=== PATIENT | male | born 1980 | race Caucasian/White ===

== ENCOUNTER 2020-04-19 09:57 | Inpatient (IN) ==
[2020-04-19 10:02] VITALS: BMI 31.3
--- NOTE | 2020-04-19 10:44 | DR.GENAD ---
HPI Time Seen Time Seen by Provider: 04/19/20 10:05 PCP Primary Care Physician: MARYANA ELLISON HPI Comment HPI Comment: PATIENT IS 39YR OLD MALE IN ER WITH CHEST PAIN, INCREASING SOB AND NON PRODUCTIVE COUGH THAT IS GETTING WORSE. WAS PLACE ON ZITHROMAX AND DEVELOP DIARRHEA AND NAUSEA WITH MEDICATION. PATIENTS COVID 19 TEST DONE 04/13/2020 WAS POSITIVE. Complaint/Symptoms Chief Complaint Doctors Comments: INCREASING SOB, CHEST PAIN AND NON PRODUCTIVE COUGH. Chief Complaint:: [facility] BRINGS PT. IN WITH C/O CHEST PAIN AND INCREASED SHORTNESS OF BREATH. CHEST PAIN WORSENS WHEN PT. TAKES A DEEP BREATH. PT. TESTED POSITIVE FOR COVID 19 ON 04-13-20. O2 SAT ON ROOM AIR WITH EMS WAS 90%. PT. WAS PLACED ON O2 VIA N/C AND O2 SAT INCREASED TO 95%. COVID-19 Coronavirus risk:travel/contact w/high risk person: Yes Has patient experienced Coronavirus symptoms: Yes Coronavirus symptoms experienced: Fever and Shortness of Breath Source History Provided: Patient and EMS Mode of Arrival Mode of Arrival: EMS Timing Onset of Chief Complaint: 04/16/20 Came on: Suddenly Duration Duration: Constant Duration: Days Severity Severity: Moderate Modifying Factors Worsens:: EXERTION. Improves:: REST. Associated Signs and Symptoms Associated Signs and Symptoms: GENERALIZED WEAKNESS AND BODY ACHES. PMH PMH Past Medical History: Yes Past Medical History: Kidney Stones Past Surgical History: Yes Surgical History: Appendectomy, Lithotripsy and Other Past Surgical History Comment: LEFT SHOULDER Family History History of Family Medical Conditions: No Social History Does patient currently use any type of tobacco product: No Have you used tobacco products in the last 12 months: No Type of Tobacco Use: None Does any household member use tobacco: No Alcohol Use: Rarely Do you use any recreational Drugs:: No Lives With: Spouse Lives Where: Home Travel Risk Coronavirus risk:travel/contact w/high risk person: Yes Has patient experienced Coronavirus symptoms: Yes Coronavirus symptoms experienced: Fever and Shortness of Breath Infectious screening In the last 2 months have you had wt loss of >10#?: NO Have you had fever, night sweats or hemotysis?: No Have you traveled outside the country in the last 6 months?: No Isolation: Droplet ROS Review of Systems Constitutional: See HPI, Fever, Malaise, Weakness, Fatigue and Loss of Appetite Eyes: No Symptoms Reported and See HPI; negative Blurred Vision and Diplopia ENTM: See HPI, Nose Discharge and Nose Congestion; negative Ear Pain and Throat Pain Respiratoy: See HPI, Non-Productive Cough and Short of Breath; negative Wheezing Cardiovascular: See HPI and Chest Pain; negative Edema Gastrointestinal/Abdominal: See HPI, Diarrhea and Nausea; negative Vomiting Genitourinary: No Symptoms Reported and See HPI; negative Dysuria, Frequency and Hematuria Neurological: See HPI, Headache and Weakness; negative Dizziness Musculoskeletal: See HPI and Muscle Pain; negative Back Pain Integumentary: No Symptoms Reported and See HPI; negative Change in Color, Rash and Juandice Hematologic/Lymphatic: No Symptoms Reported and See HPI; negative Easy Bruising and Swollen Glands Endocrine: See HPI, Increased Thirst and Decreased Appetite; negative Increased Urine (DECREASE URINATION.) Psychiatric: No Symptoms Reported and See HPI All Other Systems: Reviewed and Negative PE Vital Signs Vitals: Temperature 98.7 F Pulse Rate [Brachial] 81 Pulse Rate 66 Respiratory Rate 19 Blood Pressure [Left Arm] 118/77 Blood Pressure 132/77 O2 Sat by Pulse Oximetry 94 General Limitations: No Limitations General Appearance: Alert and In Distress Head Head Exam: Normal Inspection and Atraumatic Eyes Eye exam: Normal Appearance and PERRL; negative Scleral Icterus and Conjunctival Injection ENT ENT Exam: Normal Exam, Normal Oropharynx, Normal External Ear Exam and TM's Normal Bilaterally External Ear Exam: Normal External Inspection; negative Mastoid Tenderness TM/Canal Exam: Bilateral: Normal Nose Exam: Normal Nose Exam Mouth Exam: Normal Inspection; negative Lip Swelling and Tongue Swelling Throat Exam: Normal Inspection; negative Tonsillar Erythema, Tonsillomegaly and Tonsillar Exudate Neck Neck Exam: Normal Inspection and Trachea Midline; negative Tenderness and Lymphadenopathy Chest Chest Inspection: Normal Inspection and Symmetric Chest Wall Rise; negative Tenderness Respiratory Respiratory Exam: Normal Lung Sounds Bilat; negative Accessory Muscle Use, Chest Wall Tenderness and Respiratory Distress Respiratory Exam: Bilateral: Rhonchi and Lower: Rhonchi Cardiovascular Cardiovascular Exam: Regular Rate, Normal Rhythm and Normal Heart Sounds; negative Systolic Murmur and Diastolic Murmur Abdominal Exam Abdominal Exam: Normal Inspection, Normal Bowel Sounds and Soft; negative Tenderness Extremities Extremities Exam: Normal Inspection and Normal Capillary Refill; negative Tenderness, Edema and Calf Tenderness Back Back Exam: Normal Inspection; negative (R) CVA Tenderness and (L) CVA Tenderness Neurologic Neurological Exam: Alert, Oriented X3 and CN II-XII Intact; negative Motor Sensory Deficit Psychiatric Psychiatric Exam: Normal Affect and Normal Mood Skin Skin Exam: Dry MDM Differential Diagnosis Differential Diagnosis: PNEUMONIA, RESPIRATORY DISTRESS, COVID 19 INFECTION, BRONCHITIS,UTI. COURSE Treatment Treatment: SEE ORDERS. ZOSYN 3.375 MG IVPB, NS 125CC/HR. Consultation Consultation Comments: DISCUSSED PATIENT WITH DR. MARI AND SHE WILL ADMIT PATIENT. Education/Counseling Education/Counseling: Family Educated On: Diagnosis ROR Labs Reviewed Laboratory Results Reviewed?: Yes Result Diagrams: 04/22/20 04:35 04/22/20 04:35 Laboratory: 04/21/20 10:40 Sputum - Expectorated Sputum Sputum Culture - Preliminary 04/21/20 10:40 Sputum - Expectorated Sputum - Final 04/19/20 10:35 Blood Blood Culture - Preliminary 04/19/20 10:25 Blood Blood Culture - Preliminary WBC 11.0 X10^3/uL (3.6-10.0) H 04/21/20 04:25 RBC 4.62 X10^6/uL (4.7-6.0) L 04/21/20 04:25 Hgb 13.8 g/dL (13.5-18.0) 04/21/20 04:25 Hct 41.6 % (42.0-54.0) L 04/21/20 04:25 MCV 90.1 fL (80.0-100.0) 04/21/20 04:25 MCH 29.9 pg (27.0-34.0) 04/21/20 04:25 MCHC 33.2 g/dL (33.0-35.0) 04/21/20 04:25 RDW 13.8 % (11.6-16.5) 04/21/20 04:25 Plt Count 220 X10^3/uL (150.0-450.0) 04/21/20 04:25 Plt Count Comment Adequate (ADEQUATE) 04/21/20 04:25 MPV 9.4 fL (7.4-11.0) 04/21/20 04:25 Neut % (Auto) 87.3 % (42.0-75.0) H 04/21/20 04:25 Lymph % (Auto) 4.5 % (21.0-51.0) L 04/21/20 04:25 [place] % (Auto) 6.5 % (0.0-13.0) 04/21/20 04:25 Eos % (Auto) 0.9 % (0.9-2.9) 04/21/20 04:25 Baso % (Auto) 0.8 % (0.2-1.0) 04/21/20 04:25 Neut # (Auto) 9.6 x10^3/uL (2.2-4.8) H 04/21/20 04:25 Lymph # (Auto) 0.5 X10^3/uL (1.3-2.9) L 04/21/20 04:25 [place] # (Auto) 0.7 x10^3/uL (0.3-0.8) 04/21/20 04:25 Eos # (Auto) 0.1 x10^3/uL (0.0-0.2) 04/21/20 04:25 Baso # (Auto) 0.1 X10^3/uL (0.0-0.1) 04/21/20 04:25 Absolute Nucleated RBC 0.0 /100WBC 04/21/20 04:25 Total Counted 100 04/21/20 04:25 Neutrophils % (Manual) 87 % (39-76) H 04/21/20 04:25 Band Neutrophils % 4 % (0-10) 04/19/20 10:35 Lymphocytes % (Manual) 10 % (13-43) L 04/21/20 04:25 Monocytes % (Manual) 3 % (4-9) L 04/21/20 04:25 Plt Morphology Comment Normal (NORMAL) 04/21/20 04:25 RBC Morphology Normal (NORMAL) 04/21/20 04:25 Sample Site Rr 04/19/20 12:58 ABG pH 7.430 (7.35-7.45) 04/19/20 12:58 ABG pCO2 35.0 mmHg (35.0-45.0) 04/19/20 12:58 ABG pO2 70.0 mmHg (80.0-100.0) L 04/19/20 12:58 ABG HCO3 23.2 mmol/L (22-26) 04/19/20 12:58 ABG O2 Saturation 94.0 % (90-100) 04/19/20 12:58 ABG Base Excess -0.7 mmol/L (-2.0-2.0) 04/19/20 12:58 Ugo Test Pos 04/19/20 12:58 A-a Gradient 86.0 mmHg 04/19/20 12:58 FiO2 28.0 04/19/20 12:58 Blood Gas Comments Rima well cb 04/19/20 12:58 Sodium 139 mmol/L (136-145) 04/21/20 04:25 Corrected Sodium 141 mmol/L (136-145) 04/21/20 04:25 Potassium 4.1 mmol/L (3.5-5.1) 04/21/20 04:25 Chloride 105 mmol/L (98-107) 04/21/20 04:25 Carbon Dioxide 23.8 mmol/L (21-32) 04/21/20 04:25 BUN 14 mg/dL (7-18) 04/21/20 04:25 Creatinine 1.03 mg/dL (0.70-1.30) 04/21/20 04:25 Est GFR (MDRD) Af Amer > 60 (>60) 04/21/20 04:25 Est GFR (MDRD) Non-Af > 60 (>60) 04/21/20 04:25 Glucose 180 mg/dL (65-99) H 04/21/20 04:25 Lactic Acid 1.5 mmol/L (0.4-2.0) 04/19/20 10:35 Calcium 8.3 mg/dL (8.5-10.1) L 04/21/20 04:25 Corrected Calcium 9.7 mg/dL (8.5-10.1) 04/20/20 05:30 Ferritin 667 ng/mL (26-388) H 04/19/20 10:35 Total Bilirubin 0.30 mg/dL (0.2-1.0) 04/20/20 05:30 AST 18 Units/L (15-37) 04/20/20 05:30 ALT 33 Units/L (12-78) 04/20/20 05:30 Alkaline Phosphatase 58 Units/L (46-116) 04/20/20 05:30 Creatine Kinase 55 Units/L (39-308) 04/19/20 10:35 CK-MB (CK-2) < 1.0 ng/mL (0-4.0) 04/19/20 10:35 CK/CKMB % Calc 1.8 % (<4) 04/19/20 10:35 Troponin I < 0.02 ng/mL (0-1.5) 04/19/20 10:35 C-Reactive Protein 33.60 mg/L (0-3.0) H 04/21/20 04:25 Total Protein 7.4 g/dL (6.4-8.2) 04/20/20 05:30 Albumin 2.7 g/dL (3.4-5.0) L 04/20/20 05:30 Globulin 4.7 g/dL (2.5-4.5) H 04/20/20 05:30 Albumin/Globulin Ratio 0.6 Ratio (1.1-2.1) L 04/20/20 05:30 XRAY XRAY Interpreted by: Radiologist (REPORT NOTED AND DISCUSSED WITH PATIENT.) and Self EKG Rate: 97 [place]: Normal Rhythm: NSR Block: None Hypertrophy: None ST: Old, Inf, Infarct and Nonsp Opioid Opioid Risk Tool Age (Sergey box if 16-45): Yes History of Preadolescent Sexual Abuse: No Total: 1 Total Score Risk Category: Low Risk Copyright: Shubham IZAGUIRRE predicting aberrant behaviors Diagnosis Discharge Problem: Shortness of breath, COVID-19 virus infection Pneumonia Qualifiers: Pneumonia type: due to unspecified organism Laterality: bilateral Lung location: unspecified part of lung Qualified Code(s): J18.9 - Pneumonia, unspecified organism Instructions Forms: Precautions for COVID19 Patient Portal Social Distancing
[2020-04-19 10:46] LABS: BASOPHILS % (AUTO) 0.2 % (0.2-1.0); HEMATOCRIT 45.7 % (42.0-54.0); HEMOGLOBIN 15.4 g/dL (13.5-18.0); LYMPHOCYTES # (AUTO) 0.3 X10^3/uL (1.3-2.9); LYMPHOCYTES % (AUTO) 2.5 % (21.0-51.0); MEAN CORPUSCULAR HEMOGLOBIN 30.1 pg (27.0-34.0); MEAN CORPUSCULAR HGB CONC 33.6 g/dL (33.0-35.0); MEAN CORPUSCULAR VOLUME 89.4 fL (80.0-100.0); MEAN PLATELET VOLUME 9.2 fL (7.4-11.0); MONOCYTES # (AUTO) 0.4 x10^3/uL (0.3-0.8); MONOCYTES % (AUTO) 3.4 % (0.0-13.0); NEUTROPHILS # (AUTO) 10.3 x10^3/uL (2.2-4.8); NEUTROPHILS % (AUTO) 93.9 % (42.0-75.0); PLATELET COUNT 179 X10^3/uL (150.0-450.0); RED BLOOD COUNT 5.12 X10^6/uL (4.7-6.0); RED CELL DISTRIBUTION WIDTH 13.8 % (11.6-16.5); WHITE BLOOD COUNT 10.9 X10^3/uL (3.6-10.0)
[2020-04-19] MEDS ORDERED: NS 1000 ML 1,000 ML IV ONE (10:52)
[2020-04-19] MEDS ORDERED: NS 1000 ML 1,000 ML ONE (10:55)
[2020-04-19 11:00] LABS: BLOOD UREA NITROGEN 18 mg/dL (7-18); CALCIUM 9.1 mg/dL (8.5-10.1); CARBON DIOXIDE 23.4 mmol/L (21-32); CHLORIDE 103 mmol/L (98-107); COR NA(FOR HYPERGLY) 139 mmol/L (136-145); LACTIC ACID 1.5 mmol/L (0.4-2.0); SODIUM 137 mmol/L (136-145); TROPONIN I < 0.02 ng/mL (0-1.5); eGFR NON BLACK RACES > 60 (>60)
[2020-04-19 11:04] LABS: ALANINE AMINOTRANSFERASE 42 Units/L (12-78); ALKALINE PHOSPHATASE 66 Units/L (46-116); ASPARTATE AMINO TRANSFERASE 25 Units/L (15-37); CKMB % 1.8 % (<4); COR CA(FOR HYPOALB) 9.9 mg/dL (8.5-10.1); CREATINE KINASE 55 Units/L (39-308); CREATINE KINASE MB < 1.0 ng/mL (0-4.0); TOTAL PROTEIN 7.9 g/dL (6.4-8.2)
[2020-04-19 11:12] LABS: BAND NEUTROPHILS % 4 % (0-10); PLATELET MORPHOLOGY COMMENT NORMAL (NORMAL)
[2020-04-19 13:03] LABS: ABG ALLEN TEST POS; ABG BASE EXCESS -0.7 mmol/L (-2.0-2.0); ABG HCO3 23.2 mmol/L (22-26)
--- NOTE | 2020-04-19 15:22 | RAD ---
HISTORYSOB, CHEST PAIN, FEVER, +COVIDSTUDYCHEST, 1 VIEWCOMPARISONNone availableFINDINGSThe trachea is midline. Heart size is normal. There is rounded area of consolidation within the periphery of the right upper lobe with mild right upper lobe volume loss. Additionally there is rounded consolidation within the right lower lobe and periphery of the left lower lobe most consistent multifocal infiltrates. Increased prominence of the right nura suspicious for either pulmonary arterial enlargement or adenopathy. Attention ion follow-up imaging in 6-8 weeks is recommended.No pleural effusion or pneumothorax. No acute osseous abnormalityIMPRESSIONSee abov.eElectronically signed by: RY BURTON (Apr 19, 2020 15:21:30)
[2020-04-19] MEDS ORDERED: TORADOL 30 MG VIAL IVP ONE (15:33)
[2020-04-19] MEDS ORDERED: ZOSYN VIAL 3.375 GRAMS 3.375 G in NS 100 ML IV + SPIKE MINIBAG* 100 ML IV ONE (15:34)
[2020-04-19] MEDS ORDERED: ZOSYN VIAL 3.375 GRAMS IV ONE ×2 (15:56→19:38)
[2020-04-19] MEDS ORDERED: NS 100 ML IV + SPIKE MINIBAG* 100 ML IV ONE ×2 (15:56→19:38)
[2020-04-19] MEDS ORDERED: TORADOL 30 MG VIAL ONE (15:56)
[2020-04-19] MEDS: ZOSYN VIAL 3.375 GRAMS 3.375 G in NS 100 ML IV + SPIKE MINIBAG* 100 ML IV SCH ×2 (16:09→21:38)
[2020-04-19] MEDS ORDERED: TUSSIONEX PENNKINETIC SUSP PO PRN (16:55)
[2020-04-19] MEDS ORDERED: DECADRON INJ IV SCH (17:00)
[2020-04-19] MEDS ORDERED: ROBITUSSIN DM ONE ×2 (17:02→19:37)
[2020-04-19] MEDS: ROBITUSSIN DM PO SCH ×2 (17:03→21:38)
[2020-04-19] MEDS ORDERED: ZOFRAN INJ 4 MG VIAL ONE (17:20)
[2020-04-19] MEDS ORDERED: NS 1/2 1000 ML IV 1,000 ML IV ONE (17:25)
[2020-04-19] MEDS: NS 1/2 1000 ML IV 1,000 ML IV SCH (17:31)
[2020-04-19] MEDS ORDERED: LEVAQUIN PREMIX IV 750 MG 750 MG/150 ML BAG IV ONE (19:38)
[2020-04-19] MEDS: PULMICORT NEB TX 0.5 MG NEB SCH (21:11)
[2020-04-19] MEDS: DUONEB 0.5 MG/3 MG (3 mL) NEB SCH (21:11)
[2020-04-19] MEDS: LEVAQUIN PREMIX IV 750 MG 750 MG/150 ML BAG IV SCH (21:37)
[2020-04-19] MEDS ORDERED: TYLENOL 325 MG TAB PO ONE (21:57)
[2020-04-19] MEDS: TYLENOL 325 MG TAB PO PRN (22:09)
[2020-04-20] MEDS: DUONEB 0.5 MG/3 MG (3 mL) NEB SCH ×3 (05:40→20:47)
[2020-04-20] MEDS: ZOSYN VIAL 3.375 GRAMS 3.375 G in NS 100 ML IV + SPIKE MINIBAG* 100 ML IV SCH ×3 (05:45→21:48)
[2020-04-20] MEDS: TYLENOL 325 MG TAB PO PRN ×2 (05:45→21:48)
[2020-04-20 06:09] LABS: BASOPHILS % (AUTO) 0.1 % (0.2-1.0); HEMATOCRIT 43.7 % (42.0-54.0); HEMOGLOBIN 14.6 g/dL (13.5-18.0); LYMPHOCYTES # (AUTO) 0.7 X10^3/uL (1.3-2.9); LYMPHOCYTES % (AUTO) 6.1 % (21.0-51.0); MEAN CORPUSCULAR HEMOGLOBIN 30.3 pg (27.0-34.0); MEAN CORPUSCULAR HGB CONC 33.4 g/dL (33.0-35.0); MEAN CORPUSCULAR VOLUME 90.7 fL (80.0-100.0); MEAN PLATELET VOLUME 9.8 fL (7.4-11.0); MONOCYTES # (AUTO) 0.6 x10^3/uL (0.3-0.8); MONOCYTES % (AUTO) 5.5 % (0.0-13.0); NEUTROPHILS # (AUTO) 9.9 x10^3/uL (2.2-4.8); NEUTROPHILS % (AUTO) 88.3 % (42.0-75.0); PLATELET COUNT 201 X10^3/uL (150.0-450.0); RED BLOOD COUNT 4.82 X10^6/uL (4.7-6.0); RED CELL DISTRIBUTION WIDTH 13.8 % (11.6-16.5); WHITE BLOOD COUNT 11.2 X10^3/uL (3.6-10.0)
[2020-04-20 06:37] LABS: ALANINE AMINOTRANSFERASE 33 Units/L (12-78); ALBUMIN 2.7 g/dL (3.4-5.0); ALKALINE PHOSPHATASE 58 Units/L (46-116); ASPARTATE AMINO TRANSFERASE 18 Units/L (15-37); BLOOD UREA NITROGEN 18 mg/dL (7-18); CALCIUM 8.7 mg/dL (8.5-10.1); CARBON DIOXIDE 24.2 mmol/L (21-32); CHLORIDE 106 mmol/L (98-107); COR CA(FOR HYPOALB) 9.7 mg/dL (8.5-10.1); COR NA(FOR HYPERGLY) 141 mmol/L (136-145); CREATININE 1.08 mg/dL (0.70-1.30); SODIUM 140 mmol/L (136-145); TOTAL PROTEIN 7.4 g/dL (6.4-8.2); eGFR NON BLACK RACES > 60 (>60)
[2020-04-20] MEDS ORDERED: REMDESIVIR (INVESTIGATIONAL DRUG GS-5734) 200 MG in NS 250 ML IV 250 ML IV NR (08:01)
[2020-04-20] MEDS ORDERED: ZOSYN VIAL 3.375 GRAMS IV ONE (08:06)
[2020-04-20] MEDS ORDERED: VITAMIN C ONE (08:13)
[2020-04-20] MEDS ORDERED: REMDESIVIR (INVESTIGATIONAL DRUG GS-5734) IV ONE (08:13)
[2020-04-20] MEDS ORDERED: NS 250 ML IV 250 ML IV ONE (08:13)
[2020-04-20] MEDS ORDERED: SOLU-Medrol 125 MG VIAL ONE (08:13)
[2020-04-20] MEDS ORDERED: NS 100 ML IV + SPIKE MINIBAG* 100 ML IV ONE (08:14)
[2020-04-20] MEDS ORDERED: LOVENOX INJ 30 MG SYR SC SCH ×2 (09:00)
[2020-04-20] MEDS: PULMICORT NEB TX 0.5 MG NEB SCH ×2 (09:00→20:47)
[2020-04-20] MEDS: LEVAQUIN PREMIX IV 750 MG 750 MG/150 ML BAG IV SCH (10:20)
[2020-04-20] MEDS: ROBITUSSIN DM PO SCH ×4 (10:21→21:48)
[2020-04-20] MEDS: VSL#3 PO SCH (10:21)
[2020-04-20] MEDS: VITAMIN C PO SCH (10:22)
[2020-04-20] MEDS: SOLU-Medrol 125 MG VIAL IVP SCH ×2 (10:22→21:48)
[2020-04-20] MEDS: NS 1/2 1000 ML IV 1,000 ML IV SCH ×2 (10:25→21:48)
[2020-04-20] MEDS: LOVENOX INJ 40 MG SYR SC SCH (10:30)
--- NOTE | 2020-04-20 15:56 | DR.H&P ---
H&P History & Physical for Day of: H&P Date: 04/20/20 Chief Complaint Chief Complaint: worsening SOB, cough Allergies Allergies Allergy/AdvReac Type Severity Reaction Status Date / Time No Known Drug Allergies Allergy Verified 04/19/20 09:58 History of Present Illness History of Present Illness: Mr. Gold is a 39y/o male with no pertinent past medical hx presented with worsening SOB, dyspnea on exertion, fatigue and cough. His symptoms started on 04/06/2020 and he was tested positive on 04/13/2020. He was given z-pack, Vit C and Zinc. His symptoms have been worsening for the past week. He reports increased SOB with exertion yesterday. Denies GI symptoms. He reports fatigue. He reports decreased appetite and weight loss. ED work-up - Labs: WBC: 10.9 CRP: 121 AB.43/35/70/23 on 2L NC CXR: multifocal right and left sided infiltrates Patient was started on Levaquin and Zosyn, IVF and Decadron Plan: continue gentle hydration, IV abx, will switch to solumedrol, add Remdesivir. Wean O2 as tolerated, currently on 3L. Continue duonebs, albuterol, PT/OT as tolerated. Monitor AM labs. Past Medical History Past Medical History: Kidney Stones Past Surgical History Surgical History: Appendectomy, Ortho Surgery and Lithotripsy Social History Does patient currently use any type of tobacco product: No Have you used tobacco products in the last 12 months: No Type of Tobacco Use: None Does any household member use tobacco: No Alcohol Use: None Medications Home Medications: No Known Drug Allergies Allergy (Verified 04/19/20 09:58) CONTINUE taking the following medications dexamethasone 6 mg PO DAILY 04/19/20 [History] famotidine 40 mg PO HS 04/19/20 [History] montelukast 10 mg PO HS 04/19/20 [History] ondansetron 8 mg PO TID PRN 04/19/20 [History] zinc gluconate 50 mg PO DAILY 04/19/20 [History] Labs Result Diagrams: 04/20/20 05:30 04/20/20 05:30 Labs: Laboratory WBC 11.2 X10^3/uL (3.6-10.0) H 04/20/20 05:30 RBC 4.82 X10^6/uL (4.7-6.0) 04/20/20 05:30 Hgb 14.6 g/dL (13.5-18.0) 04/20/20 05:30 Hct 43.7 % (42.0-54.0) 04/20/20 05:30 MCV 90.7 fL (80.0-100.0) 04/20/20 05:30 MCH 30.3 pg (27.0-34.0) 04/20/20 05:30 MCHC 33.4 g/dL (33.0-35.0) 04/20/20 05:30 RDW 13.8 % (11.6-16.5) 04/20/20 05:30 Plt Count 201 X10^3/uL (150.0-450.0) 04/20/20 05:30 Plt Count Comment Adequate (ADEQUATE) 04/19/20 10:35 MPV 9.8 fL (7.4-11.0) 04/20/20 05:30 Neut % (Auto) 88.3 % (42.0-75.0) H 04/20/20 05:30 Lymph % (Auto) 6.1 % (21.0-51.0) L 04/20/20 05:30 [place] % (Auto) 5.5 % (0.0-13.0) 04/20/20 05:30 Eos % (Auto) 0.0 % (0.9-2.9) L 04/20/20 05:30 Baso % (Auto) 0.1 % (0.2-1.0) L 04/20/20 05:30 Neut # (Auto) 9.9 x10^3/uL (2.2-4.8) H 04/20/20 05:30 Lymph # (Auto) 0.7 X10^3/uL (1.3-2.9) L 04/20/20 05:30 [place] # (Auto) 0.6 x10^3/uL (0.3-0.8) 04/20/20 05:30 Eos # (Auto) 0.0 x10^3/uL (0.0-0.2) 04/20/20 05:30 Baso # (Auto) 0.0 X10^3/uL (0.0-0.1) 04/20/20 05:30 Absolute Nucleated RBC 0.0 /100WBC 04/20/20 05:30 Total Counted 100 04/19/20 10:35 Neutrophils % (Manual) 90 % (39-76) H 04/19/20 10:35 Band Neutrophils % 4 % (0-10) 04/19/20 10:35 Lymphocytes % (Manual) 3 % (13-43) L 04/19/20 10:35 Monocytes % (Manual) 3 % (4-9) L 04/19/20 10:35 Plt Morphology Comment Normal (NORMAL) 04/19/20 10:35 RBC Morphology Normal (NORMAL) 04/19/20 10:35 Sample Site Rr 04/19/20 12:58 ABG pH 7.430 (7.35-7.45) 04/19/20 12:58 ABG pCO2 35.0 mmHg (35.0-45.0) 04/19/20 12:58 ABG pO2 70.0 mmHg (80.0-100.0) L 04/19/20 12:58 ABG HCO3 23.2 mmol/L (22-26) 04/19/20 12:58 ABG O2 Saturation 94.0 % (90-100) 04/19/20 12:58 ABG Base Excess -0.7 mmol/L (-2.0-2.0) 04/19/20 12:58 Ugo Test Pos 04/19/20 12:58 A-a Gradient 86.0 mmHg 04/19/20 12:58 FiO2 28.0 04/19/20 12:58 Blood Gas Comments Rima well cb 04/19/20 12:58 Sodium 140 mmol/L (136-145) 04/20/20 05:30 Corrected Sodium 141 mmol/L (136-145) 04/20/20 05:30 Potassium 4.0 mmol/L (3.5-5.1) 04/20/20 05:30 Chloride 106 mmol/L (98-107) 04/20/20 05:30 Carbon Dioxide 24.2 mmol/L (21-32) 04/20/20 05:30 BUN 18 mg/dL (7-18) 04/20/20 05:30 Creatinine 1.08 mg/dL (0.70-1.30) 04/20/20 05:30 Est GFR (MDRD) Af Amer > 60 (>60) 04/20/20 05:30 Est GFR (MDRD) Non-Af > 60 (>60) 04/20/20 05:30 Glucose 144 mg/dL (65-99) H 04/20/20 05:30 Lactic Acid 1.5 mmol/L (0.4-2.0) 04/19/20 10:35 Calcium 8.7 mg/dL (8.5-10.1) 04/20/20 05:30 Corrected Calcium 9.7 mg/dL (8.5-10.1) 04/20/20 05:30 Ferritin 667 ng/mL (26-388) H 04/19/20 10:35 Total Bilirubin 0.30 mg/dL (0.2-1.0) 04/20/20 05:30 AST 18 Units/L (15-37) 04/20/20 05:30 ALT 33 Units/L (12-78) 04/20/20 05:30 Alkaline Phosphatase 58 Units/L (46-116) 04/20/20 05:30 Creatine Kinase 55 Units/L (39-308) 04/19/20 10:35 CK-MB (CK-2) < 1.0 ng/mL (0-4.0) 04/19/20 10:35 CK/CKMB % Calc 1.8 % (<4) 04/19/20 10:35 Troponin I < 0.02 ng/mL (0-1.5) 04/19/20 10:35 C-Reactive Protein 121.00 mg/L (0-3.0) H 04/19/20 10:35 Total Protein 7.4 g/dL (6.4-8.2) 04/20/20 05:30 Albumin 2.7 g/dL (3.4-5.0) L 04/20/20 05:30 Globulin 4.7 g/dL (2.5-4.5) H 04/20/20 05:30 Albumin/Globulin Ratio 0.6 Ratio (1.1-2.1) L 04/20/20 05:30 Review of Systems Constitutional: Weakness and Malaise ENT: No Symptoms Reported Respiratory: Cough, Shortness of Breath and SOB with Excertion Cardiovascular: No Symptoms Reported Gastrointestinal: No Symptoms Reported Genitourinary: No Symptoms Reported Musculoskeletal: No Symptoms Reported Skin: No Symptoms Reported Neurological: No Symptoms Reported Physical Exam Vital Signs: Temperature 98.5 F Pulse Rate [Brachial] 85 Pulse Rate 88 Respiratory Rate 22 Blood Pressure [Left Arm] 120/72 Blood Pressure 132/77 O2 Sat by Pulse Oximetry 95 Oriented: Normal Eyes: Normal Ear: Normal Throat: Normal Respiratory: Diminished Throughout Cardiovascular: Normal Auscultation: Bowel Sounds: Normal Palpation: Normal Tenderness: Normal Skin: Normal Musculoskeletal: Normal Psychiatric: Normal Mood Description: Calm Affect: Normal Speech Pattern: Clear and Appropriate Assessment/Plan (1) COVID-19 virus infection: Status: Acute (2) Pneumonia: Qualifiers: Laterality: bilateral Lung location: unspecified part of lung Pneumonia type: due to unspecified organism Qualified Code(s): J18.9 - Pneumonia, unspecified organism Status: Acute (3) Acute respiratory failure with hypoxia: Status: Acute Review H&P Reviewed: Yes Patient was examined?: Yes
[2020-04-20] MEDS ORDERED: NS 1/2 1000 ML IV 1,000 ML IV ONE (20:03)
[2020-04-21 05:14] LABS: BASOPHILS # (AUTO) 0.1 X10^3/uL (0.0-0.1); BASOPHILS % (AUTO) 0.8 % (0.2-1.0); EOSINOPHILS # (AUTO) 0.1 x10^3/uL (0.0-0.2); EOSINOPHILS % (AUTO) 0.9 % (0.9-2.9); HEMATOCRIT 41.6 % (42.0-54.0); HEMOGLOBIN 13.8 g/dL (13.5-18.0); LYMPHOCYTES # (AUTO) 0.5 X10^3/uL (1.3-2.9); LYMPHOCYTES % (AUTO) 4.5 % (21.0-51.0); MEAN CORPUSCULAR HEMOGLOBIN 29.9 pg (27.0-34.0); MEAN CORPUSCULAR HGB CONC 33.2 g/dL (33.0-35.0); MEAN CORPUSCULAR VOLUME 90.1 fL (80.0-100.0); MEAN PLATELET VOLUME 9.4 fL (7.4-11.0); MONOCYTES # (AUTO) 0.7 x10^3/uL (0.3-0.8); MONOCYTES % (AUTO) 6.5 % (0.0-13.0); NEUTROPHILS # (AUTO) 9.6 x10^3/uL (2.2-4.8); NEUTROPHILS % (AUTO) 87.3 % (42.0-75.0); PLATELET COUNT 220 X10^3/uL (150.0-450.0); RED BLOOD COUNT 4.62 X10^6/uL (4.7-6.0); RED CELL DISTRIBUTION WIDTH 13.8 % (11.6-16.5)
[2020-04-21 05:35] LABS: BLOOD UREA NITROGEN 14 mg/dL (7-18); CALCIUM 8.3 mg/dL (8.5-10.1); CARBON DIOXIDE 23.8 mmol/L (21-32); CHLORIDE 105 mmol/L (98-107); COR NA(FOR HYPERGLY) 141 mmol/L (136-145); CREATININE 1.03 mg/dL (0.70-1.30); SODIUM 139 mmol/L (136-145); eGFR NON BLACK RACES > 60 (>60)
[2020-04-21] MEDS: ZOSYN VIAL 3.375 GRAMS 3.375 G in NS 100 ML IV + SPIKE MINIBAG* 100 ML IV SCH ×3 (05:41→20:59)
[2020-04-21 05:53] LABS: PLATELET MORPHOLOGY COMMENT NORMAL (NORMAL)
[2020-04-21] MEDS: DUONEB 0.5 MG/3 MG (3 mL) NEB SCH (06:35)
[2020-04-21] MEDS: REMDESIVIR (INVESTIGATIONAL DRUG GS-5734) 100 MG in NS 250 ML IV 250 ML IV SCH (09:06)
[2020-04-21] MEDS: LOVENOX INJ 40 MG SYR SC SCH (09:06)
[2020-04-21] MEDS: LEVAQUIN PREMIX IV 750 MG 750 MG/150 ML BAG IV SCH (09:06)
[2020-04-21] MEDS: VSL#3 PO SCH (09:07)
[2020-04-21] MEDS: ROBITUSSIN DM PO SCH ×4 (09:07→20:31)
[2020-04-21] MEDS: VITAMIN C PO SCH (09:08)
[2020-04-21] MEDS: SOLU-Medrol 125 MG VIAL IVP SCH ×2 (09:08→20:31)
[2020-04-21] MEDS: PULMICORT NEB TX 0.5 MG NEB SCH ×2 (09:09→20:25)
--- NOTE | 2020-04-21 13:29 | PCM.PROG ---
Progress Note Progress Note for Day of Date of Exam: 04/21/20 Subjective Subjective: Patient seen at bedside, no acute events overnight. He states his SOB got worse last night after he had a breathing treatment. He felt like he couldn't take a deep breath. He has been coughing up sputum. Denies fever or chills, no GI symptoms. He states he feels chest tightness when he takes a deep breath. He is currently on 3L NC. Labs: WBC: 11 Hgb: 13.8 CRP down to 33 Plan: get sputum Cx, continue Remdesivir, solumedrol, Levaquin and Zosyn. Will check D-dimer to rule out PE, if positive then will get CT-chest. Continue pulmicort, switch to Xopenex prn. Wean O2 as tolerated. Past Medical Family Social History Past Med/Fam/Surg Hx: No changes since H&P Allergies: Allergies No Known Drug Allergies Allergy (Verified 04/19/20 09:58) Review of Systems ROS: No change since H&P Vital Signs and I&O's Vital Signs: Temperature 97.6 F Pulse Rate [Brachial] 86 Pulse Rate 66 Respiratory Rate 20 Blood Pressure [Left Arm] 117/74 Blood Pressure 132/77 O2 Sat by Pulse Oximetry 91 Intake and Output: Intake & Output 04/18/20 04/19/20 04/20/20 04/21/20 23:59 23:59 23:59 23:59 Intake Total 1500 / 1500 3523 / 3523 795 / 795 Balance 1500 / 1500 3523 / 3523 795 / 795 Physical Exam Oriented: Normal Eyes: Normal Ear: Normal Nose: Normal Throat: Normal Respiratory: Generalized and Diminished Cardiovascular: Normal Auscultation: Bowel Sounds: Normal Tenderness: Normal Skin: Normal Musculoskeletal: Normal Psychiatric: Normal Mood Description: Calm Affect: Normal Speech Pattern: Clear and Appropriate Laboratory and Diagnostics Result Diagrams: 04/21/20 04:25 04/21/20 04:25 Labs: 04/21/20 10:40 Sputum - Expectorated Sputum - Final 04/19/20 10:35 Blood Blood Culture - Preliminary 04/19/20 10:25 Blood Blood Culture - Preliminary Laboratory WBC 11.0 X10^3/uL (3.6-10.0) H 04/21/20 04:25 RBC 4.62 X10^6/uL (4.7-6.0) L 04/21/20 04:25 Hgb 13.8 g/dL (13.5-18.0) 04/21/20 04:25 Hct 41.6 % (42.0-54.0) L 04/21/20 04:25 MCV 90.1 fL (80.0-100.0) 04/21/20 04:25 MCH 29.9 pg (27.0-34.0) 04/21/20 04:25 MCHC 33.2 g/dL (33.0-35.0) 04/21/20 04:25 RDW 13.8 % (11.6-16.5) 04/21/20 04:25 Plt Count 220 X10^3/uL (150.0-450.0) 04/21/20 04:25 Plt Count Comment Adequate (ADEQUATE) 04/21/20 04:25 MPV 9.4 fL (7.4-11.0) 04/21/20 04:25 Neut % (Auto) 87.3 % (42.0-75.0) H 04/21/20 04:25 Lymph % (Auto) 4.5 % (21.0-51.0) L 04/21/20 04:25 [place] % (Auto) 6.5 % (0.0-13.0) 04/21/20 04:25 Eos % (Auto) 0.9 % (0.9-2.9) 04/21/20 04:25 Baso % (Auto) 0.8 % (0.2-1.0) 04/21/20 04:25 Neut # (Auto) 9.6 x10^3/uL (2.2-4.8) H 04/21/20 04:25 Lymph # (Auto) 0.5 X10^3/uL (1.3-2.9) L 04/21/20 04:25 [place] # (Auto) 0.7 x10^3/uL (0.3-0.8) 04/21/20 04:25 Eos # (Auto) 0.1 x10^3/uL (0.0-0.2) 04/21/20 04:25 Baso # (Auto) 0.1 X10^3/uL (0.0-0.1) 04/21/20 04:25 Absolute Nucleated RBC 0.0 /100WBC 04/21/20 04:25 Total Counted 100 04/21/20 04:25 Neutrophils % (Manual) 87 % (39-76) H 04/21/20 04:25 Band Neutrophils % 4 % (0-10) 04/19/20 10:35 Lymphocytes % (Manual) 10 % (13-43) L 04/21/20 04:25 Monocytes % (Manual) 3 % (4-9) L 04/21/20 04:25 Plt Morphology Comment Normal (NORMAL) 04/21/20 04:25 RBC Morphology Normal (NORMAL) 04/21/20 04:25 Sample Site Rr 04/19/20 12:58 ABG pH 7.430 (7.35-7.45) 04/19/20 12:58 ABG pCO2 35.0 mmHg (35.0-45.0) 04/19/20 12:58 ABG pO2 70.0 mmHg (80.0-100.0) L 04/19/20 12:58 ABG HCO3 23.2 mmol/L (22-26) 04/19/20 12:58 ABG O2 Saturation 94.0 % (90-100) 04/19/20 12:58 ABG Base Excess -0.7 mmol/L (-2.0-2.0) 04/19/20 12:58 Ugo Test Pos 04/19/20 12:58 A-a Gradient 86.0 mmHg 04/19/20 12:58 FiO2 28.0 04/19/20 12:58 Blood Gas Comments Rima well cb 04/19/20 12:58 Sodium 139 mmol/L (136-145) 04/21/20 04:25 Corrected Sodium 141 mmol/L (136-145) 04/21/20 04:25 Potassium 4.1 mmol/L (3.5-5.1) 04/21/20 04:25 Chloride 105 mmol/L (98-107) 04/21/20 04:25 Carbon Dioxide 23.8 mmol/L (21-32) 04/21/20 04:25 BUN 14 mg/dL (7-18) 04/21/20 04:25 Creatinine 1.03 mg/dL (0.70-1.30) 04/21/20 04:25 Est GFR (MDRD) Af Amer > 60 (>60) 04/21/20 04:25 Est GFR (MDRD) Non-Af > 60 (>60) 04/21/20 04:25 Glucose 180 mg/dL (65-99) H 04/21/20 04:25 Lactic Acid 1.5 mmol/L (0.4-2.0) 04/19/20 10:35 Calcium 8.3 mg/dL (8.5-10.1) L 04/21/20 04:25 Corrected Calcium 9.7 mg/dL (8.5-10.1) 04/20/20 05:30 Ferritin 667 ng/mL (26-388) H 04/19/20 10:35 Total Bilirubin 0.30 mg/dL (0.2-1.0) 04/20/20 05:30 AST 18 Units/L (15-37) 04/20/20 05:30 ALT 33 Units/L (12-78) 04/20/20 05:30 Alkaline Phosphatase 58 Units/L (46-116) 04/20/20 05:30 Creatine Kinase 55 Units/L (39-308) 04/19/20 10:35 CK-MB (CK-2) < 1.0 ng/mL (0-4.0) 04/19/20 10:35 CK/CKMB % Calc 1.8 % (<4) 04/19/20 10:35 Troponin I < 0.02 ng/mL (0-1.5) 04/19/20 10:35 C-Reactive Protein 33.60 mg/L (0-3.0) H 04/21/20 04:25 Total Protein 7.4 g/dL (6.4-8.2) 04/20/20 05:30 Albumin 2.7 g/dL (3.4-5.0) L 04/20/20 05:30 Globulin 4.7 g/dL (2.5-4.5) H 04/20/20 05:30 Albumin/Globulin Ratio 0.6 Ratio (1.1-2.1) L 04/20/20 05:30 Plan (1) COVID-19 virus infection: Status: Acute (2) Pneumonia: Status: Acute Qualifiers: Laterality: bilateral Lung location: unspecified part of lung Pneumonia type: due to unspecified organism Qualified Code(s): J18.9 - Pneumonia, unspecified organism (3) Acute respiratory failure with hypoxia: Status: Acute
[2020-04-21] MEDS: XOPENEX 1.25 MG/3 ML NEBULE NEB SCH ×2 (13:31→20:25)
[2020-04-21] MEDS: MAALOX or MYLANTA PO PRN ×2 (18:15→23:57)
--- NOTE | 2020-04-21 18:16 | CT ---
HISTORYCOVID POS/ ELEVATED D DIMER 279STUDYCTA CHESTCOMPARISONChest radiograph from 04/19/2012TECHNIQUECTA chest protocol with axial images from the thoracic inlet to upper abdomen with IV contrast. Sagittal and coronal reformats and MIP images were created. Automated exposure control was utilized.FINDINGSThyroid gland appears intrinsically benign in its visualized portion. The thoracic aorta is normal in caliber without significant atherosclerotic disease. The heart is borderline in size. No pericardial effusion. The pulmonary artery is normal in caliber centrally. No filling defect is identified to suggest pulmonary embolism. There is a web within the right distal mainstem bronchus image 38 series 5. Web in the trachea image 23 series 5. There is some mild dependent debris in the trachea. Borderline to mildly enlarged mediastinal and hilar nodes such as 1.5 cm short axis right hilar node image 35 series 4. Bilateral scattered airspace, ground-glass and interstitial opacities consistent with covid 19. No pleural effusion or pneumothorax. Visualized upper abdomen has a benign noncontrast appearance. Small hiatal hernia.IMPRESSIONBilateral airspace, ground-glass and interstitial opacities consistent with COVID-19. Negative for pulmonary embolism.Mild debris and web formation in the trachea and bronchi.Electronically signed by: Viraj Sylvester (Apr 21, 2020 18:15:00)
[2020-04-22 05:02] LABS: BASOPHILS % (AUTO) 0.1 % (0.2-1.0); HEMATOCRIT 41.1 % (42.0-54.0); HEMOGLOBIN 13.8 g/dL (13.5-18.0); LYMPHOCYTES % (AUTO) 9.2 % (21.0-51.0); MEAN CORPUSCULAR HEMOGLOBIN 30.4 pg (27.0-34.0); MEAN CORPUSCULAR HGB CONC 33.5 g/dL (33.0-35.0); MEAN CORPUSCULAR VOLUME 90.6 fL (80.0-100.0); MEAN PLATELET VOLUME 9.8 fL (7.4-11.0); MONOCYTES % (AUTO) 9.5 % (0.0-13.0); NEUTROPHILS # (AUTO) 8.4 x10^3/uL (2.2-4.8); NEUTROPHILS % (AUTO) 81.2 % (42.0-75.0); PLATELET COUNT 241 X10^3/uL (150.0-450.0); RED BLOOD COUNT 4.54 X10^6/uL (4.7-6.0); RED CELL DISTRIBUTION WIDTH 13.6 % (11.6-16.5); WHITE BLOOD COUNT 10.4 X10^3/uL (3.6-10.0)
[2020-04-22 05:04] LABS: BLOOD UREA NITROGEN 15 mg/dL (7-18); CALCIUM 8.4 mg/dL (8.5-10.1); CARBON DIOXIDE 27.4 mmol/L (21-32); CHLORIDE 105 mmol/L (98-107); COR NA(FOR HYPERGLY) 142 mmol/L (136-145); CREATININE 0.98 mg/dL (0.70-1.30); SODIUM 140 mmol/L (136-145); eGFR NON BLACK RACES > 60 (>60)
[2020-04-22] MEDS: XOPENEX 1.25 MG/3 ML NEBULE NEB SCH ×3 (05:04→21:00)
[2020-04-22] MEDS: ZOSYN VIAL 3.375 GRAMS 3.375 G in NS 100 ML IV + SPIKE MINIBAG* 100 ML IV SCH ×3 (05:40→20:59)
[2020-04-22] MEDS: MAALOX or MYLANTA PO PRN (05:42)
[2020-04-22] MEDS: LEVAQUIN PREMIX IV 750 MG 750 MG/150 ML BAG IV SCH (08:45)
[2020-04-22] MEDS: REMDESIVIR (INVESTIGATIONAL DRUG GS-5734) 100 MG in NS 250 ML IV 250 ML IV SCH (08:45)
[2020-04-22] MEDS: LOVENOX INJ 40 MG SYR SC SCH (08:45)
[2020-04-22] MEDS: PULMICORT NEB TX 0.5 MG NEB SCH ×2 (09:05→21:00)
[2020-04-22] MEDS: ROBITUSSIN DM PO SCH ×4 (09:34→20:58)
[2020-04-22] MEDS: SOLU-Medrol 125 MG VIAL IVP SCH ×2 (09:34→20:58)
[2020-04-22] MEDS: VITAMIN C PO SCH (09:34)
[2020-04-22] MEDS: VSL#3 PO SCH (09:35)
[2020-04-22] MEDS: PriLOSEC PO SCH (10:15)
--- NOTE | 2020-04-22 11:30 | PCM.PROG ---
Progress Note Progress Note for Day of Date of Exam: 04/22/20 Subjective Subjective: Patient seen at bedside, no overnight events. He states he feels a little better today. His cough has improved. He is currently on 2L NC. Denies GI Sx. He reports severe heartburn yesterday, he does take OTC Prilosec at home. Denies fever or chills. Labs: WBC: 10.4 Hgb: 13.8 CRP down to 33 D-dimer slight elevated yesterday CTPE: negative for PE, ground glass opacities suggestive of COVID infection. Plan: continue Remdesivir, solumedrol, Levaquin and Zosyn. Continue pulmicort and nebs. Wean O2 as tolerated. Ambulate TID. Continue incentive spirometer. Past Medical Family Social History Past Med/Fam/Surg Hx: No changes since H&P Allergies: Allergies No Known Drug Allergies Allergy (Verified 04/19/20 09:58) Review of Systems ROS: No change since H&P Vital Signs and I&O's Vital Signs: Temperature 98.2 F Pulse Rate [Brachial] 68 Pulse Rate 87 Respiratory Rate 20 Blood Pressure [Left Arm] 137/78 Blood Pressure 132/77 O2 Sat by Pulse Oximetry 97 Intake and Output: Intake & Output 04/19/20 04/20/20 04/21/20 04/22/20 23:59 23:59 23:59 23:59 Intake Total 1500 / 1500 3523 / 3523 6293 / 6293 720 / 720 Balance 1500 / 1500 3523 / 3523 6293 / 6293 720 / 720 Physical Exam Oriented: Normal Eyes: Normal Ear: Normal Nose: Normal Throat: Normal Respiratory: Generalized and Diminished Cardiovascular: Normal Auscultation: Bowel Sounds: Normal Tenderness: Normal Skin: Normal Musculoskeletal: Normal Psychiatric: Normal Mood Description: Calm Affect: Normal Speech Pattern: Clear and Appropriate Laboratory and Diagnostics Result Diagrams: 04/22/20 04:35 04/22/20 04:35 Labs: 04/21/20 10:40 Sputum - Expectorated Sputum Sputum Culture - Preliminary 04/21/20 10:40 Sputum - Expectorated Sputum - Final 04/19/20 10:35 Blood Blood Culture - Preliminary 04/19/20 10:25 Blood Blood Culture - Preliminary Laboratory WBC 10.4 X10^3/uL (3.6-10.0) H 04/22/20 04:35 RBC 4.54 X10^6/uL (4.7-6.0) L 04/22/20 04:35 Hgb 13.8 g/dL (13.5-18.0) 04/22/20 04:35 Hct 41.1 % (42.0-54.0) L 04/22/20 04:35 MCV 90.6 fL (80.0-100.0) 04/22/20 04:35 MCH 30.4 pg (27.0-34.0) 04/22/20 04:35 MCHC 33.5 g/dL (33.0-35.0) 04/22/20 04:35 RDW 13.6 % (11.6-16.5) 04/22/20 04:35 Plt Count 241 X10^3/uL (150.0-450.0) 04/22/20 04:35 Plt Count Comment Adequate (ADEQUATE) 04/21/20 04:25 MPV 9.8 fL (7.4-11.0) 04/22/20 04:35 Neut % (Auto) 81.2 % (42.0-75.0) H 04/22/20 04:35 Lymph % (Auto) 9.2 % (21.0-51.0) L 04/22/20 04:35 [place] % (Auto) 9.5 % (0.0-13.0) 04/22/20 04:35 Eos % (Auto) 0.0 % (0.9-2.9) L 04/22/20 04:35 Baso % (Auto) 0.1 % (0.2-1.0) L 04/22/20 04:35 Neut # (Auto) 8.4 x10^3/uL (2.2-4.8) H 04/22/20 04:35 Lymph # (Auto) 1.0 X10^3/uL (1.3-2.9) L 04/22/20 04:35 [place] # (Auto) 1.0 x10^3/uL (0.3-0.8) H 04/22/20 04:35 Eos # (Auto) 0.0 x10^3/uL (0.0-0.2) 04/22/20 04:35 Baso # (Auto) 0.0 X10^3/uL (0.0-0.1) 04/22/20 04:35 Absolute Nucleated RBC 0.0 /100WBC 04/22/20 04:35 Total Counted 100 04/21/20 04:25 Neutrophils % (Manual) 87 % (39-76) H 04/21/20 04:25 Band Neutrophils % 4 % (0-10) 04/19/20 10:35 Lymphocytes % (Manual) 10 % (13-43) L 04/21/20 04:25 Monocytes % (Manual) 3 % (4-9) L 04/21/20 04:25 Plt Morphology Comment Normal (NORMAL) 04/21/20 04:25 RBC Morphology Normal (NORMAL) 04/21/20 04:25 D-Dimer 279 ng/mLDDU (0-239) H* 04/21/20 14:48 Sample Site Rr 04/19/20 12:58 ABG pH 7.430 (7.35-7.45) 04/19/20 12:58 ABG pCO2 35.0 mmHg (35.0-45.0) 04/19/20 12:58 ABG pO2 70.0 mmHg (80.0-100.0) L 04/19/20 12:58 ABG HCO3 23.2 mmol/L (22-26) 04/19/20 12:58 ABG O2 Saturation 94.0 % (90-100) 04/19/20 12:58 ABG Base Excess -0.7 mmol/L (-2.0-2.0) 04/19/20 12:58 Ugo Test Pos 04/19/20 12:58 A-a Gradient 86.0 mmHg 04/19/20 12:58 FiO2 28.0 04/19/20 12:58 Blood Gas Comments Rima well cb 04/19/20 12:58 Sodium 140 mmol/L (136-145) 04/22/20 04:35 Corrected Sodium 142 mmol/L (136-145) 04/22/20 04:35 Potassium 4.1 mmol/L (3.5-5.1) 04/22/20 04:35 Chloride 105 mmol/L (98-107) 04/22/20 04:35 Carbon Dioxide 27.4 mmol/L (21-32) 04/22/20 04:35 BUN 15 mg/dL (7-18) 04/22/20 04:35 Creatinine 0.98 mg/dL (0.70-1.30) 04/22/20 04:35 Est GFR (MDRD) Af Amer > 60 (>60) 04/22/20 04:35 Est GFR (MDRD) Non-Af > 60 (>60) 04/22/20 04:35 Glucose 202 mg/dL (65-99) H 04/22/20 04:35 Lactic Acid 1.5 mmol/L (0.4-2.0) 04/19/20 10:35 Calcium 8.4 mg/dL (8.5-10.1) L 04/22/20 04:35 Corrected Calcium 9.7 mg/dL (8.5-10.1) 04/20/20 05:30 Ferritin 667 ng/mL (26-388) H 04/19/20 10:35 Total Bilirubin 0.30 mg/dL (0.2-1.0) 04/20/20 05:30 AST 18 Units/L (15-37) 04/20/20 05:30 ALT 33 Units/L (12-78) 04/20/20 05:30 Alkaline Phosphatase 58 Units/L (46-116) 04/20/20 05:30 Creatine Kinase 55 Units/L (39-308) 04/19/20 10:35 CK-MB (CK-2) < 1.0 ng/mL (0-4.0) 04/19/20 10:35 CK/CKMB % Calc 1.8 % (<4) 04/19/20 10:35 Troponin I < 0.02 ng/mL (0-1.5) 04/19/20 10:35 C-Reactive Protein 33.60 mg/L (0-3.0) H 04/21/20 04:25 Total Protein 7.4 g/dL (6.4-8.2) 04/20/20 05:30 Albumin 2.7 g/dL (3.4-5.0) L 04/20/20 05:30 Globulin 4.7 g/dL (2.5-4.5) H 04/20/20 05:30 Albumin/Globulin Ratio 0.6 Ratio (1.1-2.1) L 04/20/20 05:30 Plan (1) COVID-19 virus infection: Status: Acute (2) Pneumonia: Status: Acute Qualifiers: Laterality: bilateral Lung location: unspecified part of lung Pneumonia type: due to unspecified organism Qualified Code(s): J18.9 - Pneumonia, unspecified organism (3) Acute respiratory failure with hypoxia: Status: Acute
[2020-04-23 05:14] LABS: BASOPHILS % (AUTO) 0.1 % (0.2-1.0); HEMATOCRIT 41.4 % (42.0-54.0); HEMOGLOBIN 13.9 g/dL (13.5-18.0); LYMPHOCYTES # (AUTO) 0.9 X10^3/uL (1.3-2.9); LYMPHOCYTES % (AUTO) 8.5 % (21.0-51.0); MEAN CORPUSCULAR HEMOGLOBIN 30.2 pg (27.0-34.0); MEAN CORPUSCULAR HGB CONC 33.5 g/dL (33.0-35.0); MEAN CORPUSCULAR VOLUME 89.9 fL (80.0-100.0); MONOCYTES % (AUTO) 9.9 % (0.0-13.0); NEUTROPHILS # (AUTO) 8.2 x10^3/uL (2.2-4.8); NEUTROPHILS % (AUTO) 81.5 % (42.0-75.0); PLATELET COUNT 267 X10^3/uL (150.0-450.0); RED CELL DISTRIBUTION WIDTH 13.6 % (11.6-16.5)
[2020-04-23] MEDS: ZOSYN VIAL 3.375 GRAMS 3.375 G in NS 100 ML IV + SPIKE MINIBAG* 100 ML IV SCH ×3 (05:23→21:08)
[2020-04-23 05:25] LABS: ALANINE AMINOTRANSFERASE 91 Units/L (12-78); ALBUMIN 2.5 g/dL (3.4-5.0); ALKALINE PHOSPHATASE 62 Units/L (46-116); ASPARTATE AMINO TRANSFERASE 36 Units/L (15-37); BLOOD UREA NITROGEN 18 mg/dL (7-18); CALCIUM 8.7 mg/dL (8.5-10.1); CARBON DIOXIDE 28.2 mmol/L (21-32); CHLORIDE 104 mmol/L (98-107); COR CA(FOR HYPOALB) 9.9 mg/dL (8.5-10.1); COR NA(FOR HYPERGLY) 140 mmol/L (136-145); CREATININE 1.05 mg/dL (0.70-1.30); SODIUM 137 mmol/L (136-145); TOTAL PROTEIN 6.6 g/dL (6.4-8.2); eGFR NON BLACK RACES > 60 (>60)
[2020-04-23] MEDS: XOPENEX 1.25 MG/3 ML NEBULE NEB SCH ×3 (05:55→21:45)
[2020-04-23] MEDS: LEVAQUIN PREMIX IV 750 MG 750 MG/150 ML BAG IV SCH (09:15)
[2020-04-23] MEDS: PriLOSEC PO SCH (09:16)
[2020-04-23] MEDS: VITAMIN C PO SCH (09:16)
[2020-04-23] MEDS: VSL#3 PO SCH (09:16)
[2020-04-23] MEDS: SOLU-Medrol 125 MG VIAL IVP SCH ×2 (09:18→20:21)
[2020-04-23] MEDS: ROBITUSSIN DM PO SCH ×4 (09:18→20:21)
[2020-04-23] MEDS: REMDESIVIR (INVESTIGATIONAL DRUG GS-5734) 100 MG in NS 250 ML IV 250 ML IV SCH (09:19)
[2020-04-23] MEDS: LOVENOX INJ 40 MG SYR SC SCH (09:19)
[2020-04-23] MEDS: PULMICORT NEB TX 0.5 MG NEB SCH ×2 (09:25→21:45)
--- NOTE | 2020-04-23 12:51 | PCM.PROG ---
Progress Note Progress Note for Day of Date of Exam: 04/23/20 Subjective Subjective: Patient seen at bedside, no overnight events. He is currently on 2L oxygen via [place]. He states he feels better today. He is not as short of breath with ambulation to the bathroom. His cough has improved. Denies GI Sx. Labs: WBC: 10 Hgb: 13.9 Sputum Cx: normal karely CTPE: negative for PE, ground glass opacities suggestive of COVID infection. Plan: continue Remdesivir, solumedrol, Levaquin and Zosyn. Continue pulmicort and nebs. Ambulate TID. Continue incentive spirometer. RT did the walk test and patient qualifies for 2L home oxygen. CM setting that up for today. Patient likely can be discharged tomorrow if continues to do better. Past Medical Family Social History Past Med/Fam/Surg Hx: No changes since H&P Allergies: Allergies No Known Drug Allergies Allergy (Verified 04/19/20 09:58) Review of Systems ROS: No change since H&P Vital Signs and I&O's Vital Signs: Temperature 98.1 F Pulse Rate [Brachial] 65 Pulse Rate 86 Respiratory Rate 22 Blood Pressure [Left Arm] 161/88 Blood Pressure 132/77 O2 Sat by Pulse Oximetry 94 Intake and Output: Intake & Output 04/20/20 04/21/20 04/22/20 04/23/20 23:59 23:59 23:59 23:59 Intake Total 3523 / 3523 6293 / 6293 3074 / 3074 500 / 500 Balance 3523 / 3523 6293 / 6293 3074 / 3074 500 / 500 Physical Exam Oriented: Normal Eyes: Normal Ear: Normal Nose: Normal Throat: Normal Respiratory: Generalized and Diminished Cardiovascular: Normal Auscultation: Bowel Sounds: Normal Tenderness: Normal Skin: Normal Musculoskeletal: Normal Psychiatric: Normal Mood Description: Calm Affect: Normal Speech Pattern: Clear and Appropriate Laboratory and Diagnostics Result Diagrams: 04/23/20 04:40 04/23/20 04:40 Labs: 04/21/20 10:40 Sputum - Expectorated Sputum Sputum Culture - Final 04/21/20 10:40 Sputum - Expectorated Sputum - Final 04/19/20 10:35 Blood Blood Culture - Preliminary 04/19/20 10:25 Blood Blood Culture - Preliminary Laboratory WBC 10.0 X10^3/uL (3.6-10.0) 04/23/20 04:40 RBC 4.60 X10^6/uL (4.7-6.0) L 04/23/20 04:40 Hgb 13.9 g/dL (13.5-18.0) 04/23/20 04:40 Hct 41.4 % (42.0-54.0) L 04/23/20 04:40 MCV 89.9 fL (80.0-100.0) 04/23/20 04:40 MCH 30.2 pg (27.0-34.0) 04/23/20 04:40 MCHC 33.5 g/dL (33.0-35.0) 04/23/20 04:40 RDW 13.6 % (11.6-16.5) 04/23/20 04:40 Plt Count 267 X10^3/uL (150.0-450.0) 04/23/20 04:40 Plt Count Comment Adequate (ADEQUATE) 04/21/20 04:25 MPV 10.0 fL (7.4-11.0) 04/23/20 04:40 Neut % (Auto) 81.5 % (42.0-75.0) H 04/23/20 04:40 Lymph % (Auto) 8.5 % (21.0-51.0) L 04/23/20 04:40 [place] % (Auto) 9.9 % (0.0-13.0) 04/23/20 04:40 Eos % (Auto) 0.0 % (0.9-2.9) L 04/23/20 04:40 Baso % (Auto) 0.1 % (0.2-1.0) L 04/23/20 04:40 Neut # (Auto) 8.2 x10^3/uL (2.2-4.8) H 04/23/20 04:40 Lymph # (Auto) 0.9 X10^3/uL (1.3-2.9) L 04/23/20 04:40 [place] # (Auto) 1.0 x10^3/uL (0.3-0.8) H 04/23/20 04:40 Eos # (Auto) 0.0 x10^3/uL (0.0-0.2) 04/23/20 04:40 Baso # (Auto) 0.0 X10^3/uL (0.0-0.1) 04/23/20 04:40 Absolute Nucleated RBC 0.0 /100WBC 04/23/20 04:40 Total Counted 100 04/21/20 04:25 Neutrophils % (Manual) 87 % (39-76) H 04/21/20 04:25 Band Neutrophils % 4 % (0-10) 04/19/20 10:35 Lymphocytes % (Manual) 10 % (13-43) L 04/21/20 04:25 Monocytes % (Manual) 3 % (4-9) L 04/21/20 04:25 Plt Morphology Comment Normal (NORMAL) 04/21/20 04:25 RBC Morphology Normal (NORMAL) 04/21/20 04:25 D-Dimer 279 ng/mLDDU (0-239) H* 04/21/20 14:48 Sample Site Rr 04/19/20 12:58 ABG pH 7.430 (7.35-7.45) 04/19/20 12:58 ABG pCO2 35.0 mmHg (35.0-45.0) 04/19/20 12:58 ABG pO2 70.0 mmHg (80.0-100.0) L 04/19/20 12:58 ABG HCO3 23.2 mmol/L (22-26) 04/19/20 12:58 ABG O2 Saturation 94.0 % (90-100) 04/19/20 12:58 ABG Base Excess -0.7 mmol/L (-2.0-2.0) 04/19/20 12:58 Ugo Test Pos 04/19/20 12:58 A-a Gradient 86.0 mmHg 04/19/20 12:58 FiO2 28.0 04/19/20 12:58 Blood Gas Comments Rima well cb 04/19/20 12:58 Sodium 137 mmol/L (136-145) 04/23/20 04:40 Corrected Sodium 140 mmol/L (136-145) 04/23/20 04:40 Potassium 4.4 mmol/L (3.5-5.1) 04/23/20 04:40 Chloride 104 mmol/L (98-107) 04/23/20 04:40 Carbon Dioxide 28.2 mmol/L (21-32) 04/23/20 04:40 BUN 18 mg/dL (7-18) 04/23/20 04:40 Creatinine 1.05 mg/dL (0.70-1.30) 04/23/20 04:40 Est GFR (MDRD) Af Amer > 60 (>60) 04/23/20 04:40 Est GFR (MDRD) Non-Af > 60 (>60) 04/23/20 04:40 Glucose 210 mg/dL (65-99) H 04/23/20 04:40 Lactic Acid 1.5 mmol/L (0.4-2.0) 04/19/20 10:35 Calcium 8.7 mg/dL (8.5-10.1) 04/23/20 04:40 Corrected Calcium 9.9 mg/dL (8.5-10.1) 04/23/20 04:40 Ferritin 667 ng/mL (26-388) H 04/19/20 10:35 Total Bilirubin 0.30 mg/dL (0.2-1.0) 04/23/20 04:40 AST 36 Units/L (15-37) 04/23/20 04:40 ALT 91 Units/L (12-78) H 04/23/20 04:40 Alkaline Phosphatase 62 Units/L (46-116) 04/23/20 04:40 Creatine Kinase 55 Units/L (39-308) 04/19/20 10:35 CK-MB (CK-2) < 1.0 ng/mL (0-4.0) 04/19/20 10:35 CK/CKMB % Calc 1.8 % (<4) 04/19/20 10:35 Troponin I < 0.02 ng/mL (0-1.5) 04/19/20 10:35 C-Reactive Protein 33.60 mg/L (0-3.0) H 04/21/20 04:25 Total Protein 6.6 g/dL (6.4-8.2) 04/23/20 04:40 Albumin 2.5 g/dL (3.4-5.0) L 04/23/20 04:40 Globulin 4.1 g/dL (2.5-4.5) 04/23/20 04:40 Albumin/Globulin Ratio 0.6 Ratio (1.1-2.1) L 04/23/20 04:40 Plan (1) COVID-19 virus infection: Status: Acute (2) Pneumonia: Status: Acute Qualifiers: Laterality: bilateral Lung location: unspecified part of lung Pneumonia type: due to unspecified organism Qualified Code(s): J18.9 - Pneumonia, unspecified organism (3) Acute respiratory failure with hypoxia: Status: Acute
[2020-04-24] MEDS: ZOSYN VIAL 3.375 GRAMS 3.375 G in NS 100 ML IV + SPIKE MINIBAG* 100 ML IV SCH (05:02)
[2020-04-24 06:01] LABS: BLOOD UREA NITROGEN 19 mg/dL (7-18); CALCIUM 8.1 mg/dL (8.5-10.1); CARBON DIOXIDE 27.3 mmol/L (21-32); CHLORIDE 103 mmol/L (98-107); COR NA(FOR HYPERGLY) 140 mmol/L (136-145); SODIUM 136 mmol/L (136-145); eGFR NON BLACK RACES > 60 (>60)
[2020-04-24 06:04] LABS: BASOPHILS % (AUTO) 0 % (0.2-1.0); HEMATOCRIT 42.9 % (42.0-54.0); HEMOGLOBIN 14.2 g/dL (13.5-18.0); LYMPHOCYTES % (AUTO) 8.5 % (21.0-51.0); MEAN CORPUSCULAR HEMOGLOBIN 29.7 pg (27.0-34.0); MEAN PLATELET VOLUME 9.7 fL (7.4-11.0); MONOCYTES # (AUTO) 1.1 x10^3/uL (0.3-0.8); NEUTROPHILS # (AUTO) 9.8 x10^3/uL (2.2-4.8); NEUTROPHILS % (AUTO) 82.5 % (42.0-75.0); PLATELET COUNT 307 X10^3/uL (150.0-450.0); RED BLOOD COUNT 4.77 X10^6/uL (4.7-6.0); RED CELL DISTRIBUTION WIDTH 13.6 % (11.6-16.5); WHITE BLOOD COUNT 11.9 X10^3/uL (3.6-10.0)
[2020-04-24] MEDS: XOPENEX 1.25 MG/3 ML NEBULE NEB SCH (06:05)
[2020-04-24] MEDS: PULMICORT NEB TX 0.5 MG NEB SCH (08:30)
[2020-04-24] MEDS: LEVAQUIN PREMIX IV 750 MG 750 MG/150 ML BAG IV SCH (09:35)
[2020-04-24] MEDS: PriLOSEC PO SCH (09:36)
[2020-04-24] MEDS: LOVENOX INJ 40 MG SYR SC SCH (09:36)
[2020-04-24] MEDS: VSL#3 PO SCH (09:37)
[2020-04-24] MEDS: SOLU-Medrol 125 MG VIAL IVP SCH (09:37)
[2020-04-24] MEDS: VITAMIN C PO SCH (09:39)
[2020-04-24] MEDS: REMDESIVIR (INVESTIGATIONAL DRUG GS-5734) 100 MG in NS 250 ML IV 250 ML IV SCH (09:40)
[2020-04-24] MEDS: ROBITUSSIN DM PO SCH (09:40)
[2020-04-24 10:26] VITALS: BP 121/71
== END 2020-04-24 13:10 | disposition home or self-care (01) | DRG 177 ==
LOC: MED/SURG 09:57 → ER 09:57 → MED/SURG 16:24
PROVIDERS: ADMIT Internal Medicine; ATTEND Internal Medicine
DX: R79.82 Elevated C-reactive protein (CRP); R07.89 Other chest pain; J96.01 Acute respiratory failure with hypoxia; R94.31 Abnormal electrocardiogram [ECG] [EKG]; U07.1 COVID-19; R53.1 Weakness; J12.89 Other viral pneumonia